=== PATIENT | female | born 2000 | race Caucasian/White ===

== ENCOUNTER 2018-11-08 04:19 | Emergency (ER) | payer MEDICAID ==
--- NOTE | 2018-11-08 04:32 | EDM.PDOC ---
ED HPI GENERAL MEDICAL PROBLEM - General Chief Complaint: Behavioral/Psych Stated Complaint: AMBULANCE Time Seen by Provider: 11/08/18 04:30 - History of Present Illness INITIAL COMMENTS - FREE TEXT/NARRATIVE: HISTORY AND PHYSICAL: History of present illness: Patient's a 17-year-old white female with history of bipolar disorder presents by ambulance after having called the police related to her depressive episode patient was contemplating pain herself and she was found with a rope that she planned on using she denies overdose ingestion or other concern and is requesting an agreeable to help she has been hospitalized in the past Review of systems: As per history of present illness and below otherwise all systems reviewed and negative. Past medical history: As per history of present illness and as reviewed below otherwise noncontributory. Surgical history: As per history of present illness and as reviewed below otherwise noncontributory. Social history: No reported history of drug or alcohol abuse. Family history: As per history of present illness and as reviewed below otherwise noncontributory. Physical exam: HEENT: Atraumatic, normocephalic, pupils reactive, negative for conjunctival pallor or scleral icterus, mucous membranes moist, throat clear, neck supple, nontender, trachea midline. Lungs: Clear to auscultation, breath sounds equal bilaterally, chest nontender. Heart: S1S2, regular, negative for clicks, rubs, or JVD. Abdomen: Soft, nondistended, nontender. Negative for masses or hepatosplenomegaly. Negative for costovertebral tenderness. Pelvis: Stable nontender. Genitourinary: Deferred. Rectal: Deferred. Extremities: Atraumatic, negative for cords or calf pain. Neurovascular unremarkable. Neuro: Awake, alert, oriented. Cranial nerves II through XII unremarkable. Cerebellum unremarkable. Motor and sensory unremarkable throughout. Exam nonfocal. Diagnostics: Psychiatric panel Therapeutics: None Impression: #1 history of bipolar disorder #2 depressive episode with suicidal ideation Definitive disposition and diagnosis as appropriate pending reevaluation and review of above. - Related Data Allergies Allergy/AdvReac Type Severity Reaction Status Date / Time No Known Allergies Allergy Verified 11/08/18 04:24 Home Meds: Home Meds FLUoxetine [PROzac] 0 mg PO DAILY 11/08/18 [History] LORazepam [Ativan] 0 mg PO ASDIRECTED 11/08/18 [History] OXcarbazepine [Trileptal] 0 mg PO BID 11/08/18 [History] QUEtiapine [SEROquel] 0 mg PO BID 11/08/18 [History] ED ROS GENERAL - Review of Systems Review Of Systems: ROS reveals no pertinent complaints other than HPI. ED EXAM, GENERAL - Physical Exam Exam: See Below (See dictation) Course - Orders/Labs/Meds Orders: Active Orders 24 hr Category Date Time Status EKG Documentation Completion [RC] STAT Care 11/08/18 04:21 Active ACETAMINOPHEN [CHEM] Stat Lab 11/08/18 04:21 Ordered CBC WITH AUTO DIFF [HEME] Stat Lab 11/08/18 04:21 Ordered COMPREHENSIVE METABOLIC PN,CMP [CHEM] Stat Lab 11/08/18 04:21 Ordered DRUG SCREEN, URINE [URCHEM] Stat Lab 11/08/18 04:21 Ordered ETHANOL BLOOD MEDICAL [CHEM] Stat Lab 11/08/18 04:21 Ordered MAGNESIUM [CHEM] Stat Lab 11/08/18 04:21 Ordered SALICYLATE [CHEM] Stat Lab 11/08/18 04:21 Ordered TSH [CHEM] Stat Lab 11/08/18 04:21 Ordered UA W/MICROSCOPIC [URIN] Stat Lab 11/08/18 04:21 Ordered Departure - Departure Time of Disposition: 04:31 Disposition: DC/Tfer to Psych Hosp/Unit 65 Condition: Good Clinical Impression: Depressive disorder - Discharge Information - My Orders Last 24 Hours: My Active Orders 11/08/18 04:21 EKG Documentation Completion [RC] STAT ACETAMINOPHEN [CHEM] Stat CBC WITH AUTO DIFF [HEME] Stat COMPREHENSIVE METABOLIC PN,CMP [CHEM] Stat DRUG SCREEN, URINE [URCHEM] Stat ETHANOL BLOOD MEDICAL [CHEM] Stat MAGNESIUM [CHEM] Stat SALICYLATE [CHEM] Stat TSH [CHEM] Stat UA W/MICROSCOPIC [URIN] Stat - Assessment/Plan Last 24 Hours: My Active Orders 11/08/18 04:21 EKG Documentation Completion [RC] STAT ACETAMINOPHEN [CHEM] Stat CBC WITH AUTO DIFF [HEME] Stat COMPREHENSIVE METABOLIC PN,CMP [CHEM] Stat DRUG SCREEN, URINE [URCHEM] Stat ETHANOL BLOOD MEDICAL [CHEM] Stat MAGNESIUM [CHEM] Stat SALICYLATE [CHEM] Stat TSH [CHEM] Stat UA W/MICROSCOPIC [URIN] Stat
[2018-11-08 05:06] LABS: CHLORIDE,CL 105 mmol/L (98-107); SODIUM,NA 141 mmol/L (136-145)
[2018-11-08 05:08] LABS: ACETAMINOPHEN <2.0 ug/mL
[2018-11-08] MEDS ORDERED: Ciprofloxacin 500 MG Tab PO STA (05:46)
== END 2018-11-08 08:45 ==
LOC: MW.ED 04:19
DX: F32.9 Major depressive disorder, single episode, unspecified (principal); Z79.899 Other long term (current) drug therapy
CPT/HCPCS: 36415; 80053; 80305; 81001; 83735; 84443; 85025; 93005; 99285; A9270; G0480; 99283

== ENCOUNTER 2018-11-14 14:04 | Emergency (ER) | payer MEDICAID ==
[2018-11-14 15:29] LABS: CHLORIDE,CL 106 mmol/L (98-107); SODIUM,NA 141 mmol/L (136-145)
[2018-11-14 15:30] LABS: ACETAMINOPHEN <2.0 ug/mL
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
[2018-11-14] MEDS ORDERED: Acetaminophen 500 MG Tab PO ONE (20:40)
== END 2018-11-14 21:45 | disposition home or self-care (01) ==
LOC: MW.ED 14:04
DX: T14.91XA Suicide attempt, initial encounter (principal); S50.812A Abrasion of left forearm, initial encounter; X78.8XXA Intentional self-harm by other sharp object, initial encounter
CPT/HCPCS: 36415; 80053; 80305; 81001; 81025; 83735; 84443; 85025; 93005; 99285; A9270; G0480; 99283

== ENCOUNTER 2022-09-08 22:16 | Emergency (ER) | payer MEDICAID ==
[2022-09-08] MEDS ORDERED: Ketorolac 30 MG/ML SDV IVPUSH ONE (23:10)
[2022-09-08] MEDS ORDERED: Ketorolac 30 MG/ML SDV IM ONE (23:13)
== END 2022-09-08 23:26 | disposition home or self-care (01) ==
LOC: MW.ED 22:16
DX: S30.814A Abrasion of vagina and vulva, initial encounter (principal); N94.10 Unspecified dyspareunia; E11.9 Type 2 diabetes mellitus without complications; Z79.84 Long term (current) use of oral hypoglycemic drugs
CPT/HCPCS: 81001; 81025; 96372; 99284; J1885

== ENCOUNTER 2022-12-10 13:04 | Emergency (ER) | payer MEDICAID ==
[2022-12-10 14:29] LABS: ACETAMINOPHEN <2.0 ug/mL; BLOOD UREA NITROGEN,BUN 11 mg/dL (7.0-18.0); CHLORIDE,CL 104 mmol/L (98-107); GLUCOSE RANDOM 147 mg/dL (74-106); POTASSIUM,K 4.1 mmol/L (3.5-5.1); SODIUM,NA 140 mmol/L (136-145)
[2022-12-10 14:31] LABS: ESTIMATED GFR 105 mL/min (>60)
[2022-12-10 16:14] LABS: CORONAVIRUS COVID-19 NAA NEGATIVE (NEGATIVE); INFLUENZA A NAA NEGATIVE (NEGATIVE); INFLUENZA B NAA NEGATIVE (NEGATIVE); RESPIRATORY SYNCYTIAL VIR NAA NEGATIVE (NEGATIVE)
== END 2022-12-11 00:13 ==
LOC: MW.ED 13:04
DX: R45.851 Suicidal ideations (principal); E11.9 Type 2 diabetes mellitus without complications
CPT/HCPCS: 0241U; 36415; 80053; 80143; 80179; 80305; 80307; 81001; 81025; 83735; 85025; 93005; 99285

== ENCOUNTER 2022-12-20 16:15 | Emergency (ER) | payer OTHER, MEDICAID ==
[2022-12-20] MEDS ORDERED: Acetaminophen 325 MG Tab PO ONE (16:26)
[2022-12-20] MEDS ORDERED: Lidocaine 4% 1 each Patch TOP SCH (16:30)
== END 2022-12-20 18:31 | disposition home or self-care (01) ==
LOC: MW.ED 16:15
DX: S06.0X0A Concussion without loss of consciousness, initial encounter (principal); J45.909 Unspecified asthma, uncomplicated; E11.9 Type 2 diabetes mellitus without complications; Z79.84 Long term (current) use of oral hypoglycemic drugs; Z79.899 Other long term (current) drug therapy; V43.62XA Car passenger injured in collision with other type car in traffic accident, initial encounter; Y92.410 Unspecified street and highway as the place of occurrence of the external cause
CPT/HCPCS: 70450; 72125; 99284; A9270; 99283

== ENCOUNTER 2023-03-16 00:24 | Emergency (ER) | payer MEDICAID ==
[2023-03-16] MEDS ORDERED: predniSONE 20 MG Tab PO ONE (01:02)
== END 2023-03-16 01:25 | disposition home or self-care (01) ==
LOC: MW.ED 00:24
DX: L40.9 Psoriasis, unspecified (principal); E11.9 Type 2 diabetes mellitus without complications; J45.909 Unspecified asthma, uncomplicated; Z79.899 Other long term (current) drug therapy
CPT/HCPCS: 99282; A9270; 99283